=== PATIENT | male | born 1985 | race Caucasian/White ===

== ENCOUNTER 2019-04-18 13:33 | Inpatient (IN) ==
[2019-04-18] MEDS ORDERED: MAALOX PLUS LIQUID PO PRN (17:20)
[2019-04-18] MEDS ORDERED: MOTRIN PO PRN (17:20)
[2019-04-18] MEDS ORDERED: ZOFRAN IV PRN (17:20)
[2019-04-18] MEDS ORDERED: TYLENOL PO PRN (17:20)
[2019-04-18] MEDS ORDERED: SALINE LOCK IV FLUID XX ONE (17:20)
[2019-04-18] MEDS ORDERED: DULCOLAX PR PRN (17:20)
[2019-04-18] MEDS ORDERED: SENOKOT PO PRN (17:20)
[2019-04-18] MEDS ORDERED: D5W 1,000 ML IV PRN (17:20)
[2019-04-18] MEDS ORDERED: DESYREL PO PRN (17:20)
[2019-04-18] MEDS ORDERED: ZOFRAN ODT PO PRN (17:20)
[2019-04-18] MEDS ORDERED: BENTYL PO PRN (17:20)
[2019-04-18] MEDS ORDERED: IMODIUM PO PRN (17:20)
[2019-04-18] MEDS ORDERED: TUBERSOL ID ONE (17:20)
[2019-04-18] MEDS ORDERED: PHENOBARBITAL IV PRN (17:20)
[2019-04-18 17:50] LABS: HEMATOCRIT 43.1 % (42.0-52.0); HEMOGLOBIN 14.8 g/dL (14.0-18.0); MCH 30.9 PG (27-31); MCHC 34.3 g/dL (33-37); MPV 9.6 FL (7.4-10.4); RBC 4.79 XMIL (4.7-6.1); RDW 13.8 % (11.5-14.5); WBC 7.14 X1000 (4.8-10.8)
[2019-04-18 18:06] LABS: INR 0.85
[2019-04-18 18:08] LABS: AMYLASE 37 U/L (20-200); LIPASE 34 U/L (13-60)
[2019-04-18 18:11] LABS: AGAP 17; ALBUMIN 4.7 g/dL (3.5-5.0); ALKALINE PHOSPHATASE 71 U/L (32-122); BUN 9 mg/dL (8-22); CALCIUM 8.7 mg/dL (8.8-10.2); CHLORIDE 101 mmol/L (98-107); COSMO 284; CREATININE 0.5 mg/dL (0.7-1.2); ESTIMATED GFR > 60; GLUCOSE 100 mg/dL (70-104); GOT 29 U/L (10-34); GPT 27 U/L (10-44); POTASSIUM 4.1 mmol/L (3.5-5.1); SODIUM 143 mmol/L (136-145); TCO2 25 mmol/L (25-35); TOTAL PROTEIN 7.8 g/dL (6.3-8.3)
[2019-04-18] MEDS ORDERED: HALDOL IV ONE ×2 (19:01→19:22)
[2019-04-18] MEDS ORDERED: BENADRYL IV ONE (19:01)
[2019-04-18] MEDS ORDERED: ATIVAN IV ONE ×2 (19:01→19:11)
[2019-04-18 19:59] LABS: URINE SOURCE VOIDED
[2019-04-18 20:02] LABS: BILIRUBIN URINE NEGATIVE (NEGATIVE); BLOOD URINE NEGATIVE (NEGATIVE); COLOR YELLOW; GLUCOSE URINE 150 mg/dL (NEGATIVE); KETONE URINE TRACE mg/dL (NEGATIVE); LEUKOCYTES URINE NEGATIVE (NEGATIVE); NITRITE URINE NEGATIVE (NEGATIVE); PROTEIN URINE 30 mg/dL (NEGATIVE); TURBIDITY URINE HAZY (CLEAR); UROBILINOGEN URINE NORMAL (NORMAL)
[2019-04-18 20:04] LABS: UR EPITHELIAL CELLS <10 /HPF (<10); URINE BACTERIA NEGATIVE /HPF; URINE RBC <10 /HPF (<10); URINE WBC <10 /HPF (<10)
[2019-04-18 20:12] LABS: UR AMPHETAMINES QUAL NONE DETECTED (NONE DETECT); UR BARBITUATES QUAL NONE DETECTED (NONE DETECT); UR BENZODIAZEPIN QUAL NONE DETECTED (NONE DETECT); UR COCAINE QUAL NONE DETECTED (NONE DETECT); UR METHADONE QUAL NONE DETECTED (NONE DETECT); UR METHAMPHETAMINE QUAL NONE DETECTED (NONE DETECT)
[2019-04-18 20:13] LABS: UR CANNABINOIDS QUAL NONE DETECTED (NONE DETECT); UR OPIATES QUAL NONE DETECTED (NONE DETECT); UR OXYCODONE QUAL NONE DETECTED (NONE DETECT); UR PCP QUAL NONE DETECTED (NONE DETECT); UR PROPOXYPHENE QUAL NONE DETECTED (NONE DETECT); UR TCA QUAL NONE DETECTED (NONE DETECT)
[2019-04-18] MEDS: ROBAXIN PO PRN (20:41)
[2019-04-18] MEDS: SEROQUEL PO PRN (20:41)
[2019-04-18] MEDS: LIBRIUM PO SCH (20:41)
--- NOTE | 2019-04-18 21:52 | HISTORY AND PHYSICAL ---
CHIEF COMPLAINT: Nausea, vomiting. HISTORY OF PRESENT ILLNESS: Patient is a 33-year-old male who presented to the hospital with increased nausea, vomiting, abdominal pain, myalgias, paresthesias, and increased sweating. States he has been drinking heavily, but unable to stop. SOCIAL HISTORY: Patient is . He is currently unemployed. Lives at home in [place]. PAST MEDICAL HISTORY: PTSD, anxiety, history of seizures during withdrawal. States he has blackouts "all the time." MEDICATIONS: No current medications. ALLERGIES: None. REVIEW OF SYSTEMS: CIWA score is 30 secondary to moderate tremors at rest, history of seizures during withdrawal, history of visual and auditory hallucinations, nausea, vomiting, occasional dry heaves, drenching sweats, frequent paroxysmal sweating, headaches, easily confused, agitated, anxious, unable sit still. Denies any headaches currently. Denies any blurred vision, change in vision. Denies any focalized numbness, tingling, weakness. Denies dysuria, urgency frequency, urgency, hesitancy, polyuria or polydipsia. Does have a history of suicide attempt 2 weeks ago. He used a large dose of heroin with an intention [*] withdrawal. SUBSTANCE ABUSE HISTORY: He was in [facility] in [place] in 2018 for 3 weeks and only stayed sober approximately 3 weeks in 2019. He was at [facility] for 21 days and then was in treatment for 2 months but got dismissed due to taking [id number] Tiannas. Notes that he has been sick. Substance abuse history has caused relationship, financial problems. Notes that he got [*]from work due to substance abuse. FAMILY HISTORY: Noncontributory. PHYSICAL EXAMINATION: VITAL SIGNS: Reviewed and stable. Patient is awake, alert, currently in no respiratory distress. HEENT: Normocephalic. NECK: Supple. CARDIOVASCULAR: Regular rate. CHEST: Clear nonlabored. ABDOMEN: Soft, nondistended, nontender. EXTREMITIES: Moves all extremities. NEUROLOGIC: Patient is awake, alert, oriented. He had one of his seizure events earlier while talking to the staff. He stated, "I am going to have a seizure. Then he subsequently had a dysrhythmic shaking spell that lasted less than 30 seconds after which time he immediately opened his eyes, looked at the staff and stated, "Those events are so scary. I hate when they happen." ASSESSMENT: 1. Nausea and vomiting. 2. Abdominal pain. 3. Myalgias. 4. Paresthesias. 5. Paroxysmal sweating. 6. Tremors. 7. Chronic anxiety, depression. 8. Alcohol abuse withdrawal and stabilization. PLAN: We will continue patient in the hospital, will continue on the floor at this point as the event that occurred earlier certainly would be highly unlikely to be seizure-type activity. For one, the patient knew the event was about to occur and it lasted approximately 30 seconds after which time he was in no postictal type period. Regardless, we are going to continue on high-dose Librium, banana bag, counseling and will follow. cc: Oseas Wick MD
[2019-04-19] MEDS: LIBRIUM PO SCH ×4 (01:23→20:50)
[2019-04-19] MEDS ORDERED: M.V.I.-12 10 ML, FOLIC ACID 1 MG, MAGNESIUM SULFATE 1 GM, THIAMINE 100 MG in NS 1,000 ML IV ONE (09:00)
[2019-04-19] MEDS: FOLIC ACID PO SCH (09:33)
[2019-04-19] MEDS: THERA M PLUS PO SCH (09:33)
[2019-04-19] MEDS: PROTONIX PO SCH (09:35)
[2019-04-19] MEDS: VITAMIN B-1 PO SCH (09:35)
[2019-04-19] MEDS: NICODERM PATCH TD PRN (10:55)
[2019-04-19] MEDS: NICOTINE GUM BUCCAL PRN ×3 (14:30→20:50)
[2019-04-19] MEDS: BENADRYL IV PRN ×2 (16:02→22:48)
[2019-04-19] MEDS: HALDOL IV PRN ×2 (16:02→22:48)
[2019-04-19] MEDS: ATARAX PO PRN (20:50)
[2019-04-19] MEDS: SEROQUEL PO PRN (22:47)
--- NOTE | 2019-04-20 01:17 | PROGRESS NOTE ---
DATE: 04/19/2019 SUBJECTIVE: Patient has no new complaints. States he is feeling okay. PHYSICAL EXAMINATION: Vital signs: Reviewed. Temperature 98.3 degrees, pulse 92, respiratory 18, BP 114/64. General: Patient is pleasant, currently in no respiratory distress. HEENT: Normocephalic. Neck: Supple. Cardiovascular: Regular rate. Chest: Clear. Abdomen: Soft, nondistended. Neurologic: No focal changes. Skin: Warm, dry. No rashes. ASSESSMENT: 1. Nausea, vomiting. 2. Abdominal pain. 3. Myalgias. 4. Paresthesias. 5. Paroxysmal sweating. 6. Alcohol abuse, withdrawal and stabilization. 7. Suicidal ideations. 8. Opiate abuse and withdrawal with heroin and Tianaa. 9. Posttraumatic stress disorder. PLAN: We are going to continue patient in the hospital. Continue Librium taper. Continue to monitor. Certainly do not feel as though the event that he had yesterday was a true seizure. Thankfully, he has had no further events. We will follow. cc: Oseas Wick MD
[2019-04-20] MEDS: PROTONIX PO SCH (06:32)
[2019-04-20] MEDS: LIBRIUM PO SCH ×4 (06:32→20:05)
[2019-04-20] MEDS: THERA M PLUS PO SCH (09:19)
[2019-04-20] MEDS: VITAMIN B-1 PO SCH (09:19)
[2019-04-20] MEDS: FOLIC ACID PO SCH (09:19)
[2019-04-20] MEDS: NICOTINE GUM BUCCAL PRN ×4 (09:22→18:48)
[2019-04-20] MEDS: NICODERM PATCH TD PRN (11:20)
[2019-04-20] MEDS: BENADRYL IV PRN ×3 (11:37→20:54)
[2019-04-20] MEDS: HALDOL IV PRN ×3 (11:38→20:54)
[2019-04-20] MEDS: ROBAXIN PO PRN (18:52)
[2019-04-20] MEDS: ATARAX PO PRN (20:54)
[2019-04-20] MEDS ORDERED: DESYREL PO SCH (21:00)
--- NOTE | 2019-04-21 01:45 | PROGRESS NOTE ---
DATE: 04/20/2019 SUBJECTIVE: Patient notes that he wants to go to home. States he has an outpatient appointment with psychiatrist on Monday. PHYSICAL EXAMINATION: Vital Signs: Temperature 97.8, pulse 75, respiratory 18, BP 123/75. General: Patient is awake, pleasant. No distress. HEENT: Normocephalic. Neck: Supple. Cardiovascular: Regular rate. Chest: Clear. Abdomen: Soft. Extremities: Moves all extremities. ASSESSMENT: 1. Nausea and vomiting. 2. Abdominal pain. 3. Myalgias. 4. Paresthesias. 5. Paroxysmal sweating. 6. Alcohol abuse, withdrawal and stabilization. 7. Chronic posttraumatic stress disorder. 8. Chronic anxiety. PLAN: We are going to continue patient in the hospital. Continue Librium decrease to 25 to 6 and we will decrease again tomorrow if he tolerates. Further orders as needed. cc: Oseas Wick MD
[2019-04-21] MEDS: LIBRIUM PO SCH ×2 (06:31→10:02)
[2019-04-21] MEDS: PROTONIX PO SCH ×2 (06:32→10:02)
[2019-04-21] MEDS: FOLIC ACID PO SCH (10:02)
[2019-04-21] MEDS: THERA M PLUS PO SCH (10:02)
[2019-04-21] MEDS: NICOTINE GUM BUCCAL PRN ×2 (10:02→12:50)
[2019-04-21] MEDS: VITAMIN B-1 PO SCH (10:02)
[2019-04-21] MEDS: NICODERM PATCH TD PRN (11:37)
[2019-04-21] MEDS: BENADRYL IV PRN (12:49)
[2019-04-21] MEDS: HALDOL IV PRN (12:50)
[2019-04-21] MEDS ORDERED: LIBRIUM PO SCH (13:00)
[2019-04-21 13:06] VITALS: BP 124/71
--- NOTE | 2019-04-22 03:18 | DISCHARGE SUMMARY ---
ADMISSION DATE: 04/18/2019 DISCHARGE DATE: 04/21/2019 DISCHARGE DIAGNOSIS: 1. Nausea, vomiting. 2. Abdominal pain. 3. Myalgias. 4. Suicide ideations, completely resolved. 5. Alcohol abuse, withdrawal and stabilization. 6. Anxiety. 7. Posttraumatic stress disorder. CONSULTATIONS: None. PROCEDURES: None. BRIEF HOSPITAL COURSE: The patient is a 33-year-old male who presented to the hospital with nausea, vomiting, abdominal pain, tremors, myalgias, paresthesias, and suicide ideation. He was placed on suicide precautions as well as high-dose Librium. Librium continued to wean. On discharge, patient is awake, alert. States he is feeling tremendously better. Denies all suicide ideations. [*]this only happens when he is drinking. Notes that he has to stop drinking to prevent these future events. DISPOSITION: Patient will be discharged home. Discussed with him that he needs follow up outpatient with his psychiatrist. He has an appointment in the a.m. prescheduled. We will place him on Librium, continue tapering at home. Continue counseling. TIME SPENT: Greater than 30 minutes was spent in total care. cc: Oseas Wick MD
== END 2019-04-21 15:26 | disposition home or self-care (01) | DRG 392 ==
LOC: P.DIRADM 13:34 → P.MEDSURG 16:35
PROVIDERS: ADMIT Family Medicine; ATTEND Family Medicine